=== PATIENT | male | born 2000 | race Caucasian/White ===

== ENCOUNTER 2020-09-03 08:31 | Emergency (ER) | payer OTHER, SELFPAY ==
[2020-09-03 08:28] VITALS: BP 141/90; PULSE 82; RESP 16; TEMP 36.6; O2SAT 99
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
[2020-09-03 09:14] LABS: Abs Immature Grans 0.01 10^3/uL (0.0-0.06); Absolute Basophil Count 0.02 10^3/uL (0.0-0.2); Absolute Eosinophil Count 0.05 10^3/uL (0.0-0.7); Absolute Lymphocyte Count 0.86 10^3/uL (1.2-3.4); Absolute Monocyte Count 0.37 10^3/uL (0.1-0.8); Absolute Neutrophil Count 2.86 10^3/uL (1.2-6.7); Basophils % 0.5; Eosinophils % 1.2; HCT 44.7 % (40.0-50.0); HGB 15.7 g/dL (13.5-17.5); Immature Grans % 0.2; Lymphocytes % 20.6; MCH 31.2 pg (27.0-33.0); MCHC 35.1 % (32.0-36.0); MCV 88.7 fL (80-95); MPV 9.7 fL (8.0-11.0); Monocytes % 8.9; Neutrophils % 68.6; Nucleated RBC 0 %; Platelet Count 213 10^3/uL (130-400); RBC 5.04 10^6/uL (4.36-5.78); RDW 12.1 % (11.8-14.1); RDW-SD 39.8 fL; WBC 4.17 10^3/uL (4.4-10.8)
[2020-09-03 09:29] LABS: ALT 26 U/L (16-63); AST 18 U/L (15-37); Albumin 4.6 g/dL (3.4-5.0); Alkaline Phosphatase 105 U/L (46-116); BUN 12 mg/dL (7-18); Bilirubin, Total 0.7 mg/dL (0.2-1.0); CREATININE 0.9 mg/dL (0.70-1.30); Calcium 9.4 mg/dL (8.5-10.1); Chloride 105 mmol/L (98-107); Glucose 88 mg/dL (74-106); Lipase 73 U/L (73-393); Potassium 4.4 mmol/L (3.5-5.1); Sodium 140 mmol/L (136-145); Total Protein 7.7 g/dL (6.4-8.2)
[2020-09-03] MEDS: Omnipaque 350 MG/ML 100 ML BTL IJ (09:31)
[2020-09-03] MEDS: Normal Saline - Diluent 50 ML VIAL IV (09:33)
[2020-09-03 11:17] LABS: Bilirubin Negative (Negative); Blood Negative (Negative); Clarity Clear (Clear); Glucose Negative (Negative); Ketones Negative (Negative); Leukocyte Esterase Negative (Negative); Nitrite Negative (Negative); Urobilinogen 0.2 EU/dL (Up TO 0.2); pH 7.5 (5-8)
[2020-09-03 11:46] VITALS: BP 139/80; PULSE 76; RESP 16; TEMP 37.2; O2SAT 99
== END 2020-09-03 11:44 | disposition home or self-care (01) ==
PROVIDERS: Emergency Provider Physician Assistant; PCP Physician Assistant Medical
DX: M54.2 Cervicalgia (principal); S66.912A Strain of unspecified muscle, fascia and tendon at wrist and hand level, left hand, initial encounter; S20.314A Abrasion of middle front wall of thorax, initial encounter; R10.10 Upper abdominal pain, unspecified; R10.13 Epigastric pain; V58.5XXA Driver of pick-up truck or van injured in noncollision transport accident in traffic accident, initial encounter
CPT/HCPCS: 36415; 74177; 80053; 83690; 86850; 86900; 86901; 99285; 70450; 71260; 72125; 72192; 73110; 81003; 85025; 99284; J3490

== ENCOUNTER 2022-01-16 11:44 | Emergency (ER) | payer OTHER, SELFPAY ==
[2022-01-16 11:55] VITALS: BP 111/78; PULSE 84; RESP 20; TEMP 36.7; O2SAT 97
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
[2022-01-16] MEDS: Ibuprofen 600 MG TAB PO (14:01)
== END 2022-01-16 14:13 | disposition home or self-care (01) ==
PROVIDERS: Emergency Provider Registered Nurse Emergency; PCP Physician Assistant Medical
DX: S80.12XA Contusion of left lower leg, initial encounter (principal); W22.8XXA Striking against or struck by other objects, initial encounter; Z87.891 Personal history of nicotine dependence
CPT/HCPCS: 29505; 99283; 73590; 99282

== ENCOUNTER 2022-03-13 21:16 | Emergency (ER) | payer OTHER, SELFPAY ==
[2022-03-13 21:27] VITALS: BP 131/66; PULSE 63; RESP 16; TEMP 36.6; O2SAT 99
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
[2022-03-13] MEDS: Cephalexin 500 MG CAP, 4 CAPS/BTL PO (22:00)
--- NOTE | 2022-03-14 01:25 | NUR.NOTE ---
foot soaked in soapy water, bacitracin and bandaid applied.Nursing Note:
== END 2022-03-13 22:17 | disposition home or self-care (01) ==
PROVIDERS: Emergency Provider Physician Assistant; PCP Physician Assistant
DX: S91.311A Laceration without foreign body, right foot, initial encounter (principal); L03.115 Cellulitis of right lower limb; W26.8XXA Contact with other sharp object(s), not elsewhere classified, initial encounter
CPT/HCPCS: 99283

== ENCOUNTER 2022-12-13 11:00 | Emergency (ER) | payer OTHER, SELFPAY ==
[2022-12-13 11:04] VITALS: BP 121/69; PULSE 75; RESP 16; TEMP 36.7; O2SAT 100
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
--- NOTE | 2022-12-13 11:15 | DI.RAD_ITS ---
Exam(s) XR FOOT RT COMPLETE EXAM: XR FOOT RT COMPLETE CLINICAL HISTORY: trauma. TECHNIQUE: 2D digital imaging was performed. Three views. COMPARISON: No exams were available for comparison FINDINGS: BONES: No acute fracture is present. No bony destructive lesion is seen. JOINTS: No dislocation present. SOFT TISSUE: Normal. IMPRESSION: Unremarkable radiographs of the right foot. DATA REPOSITORY: RADIATION DOSE DELIVERED:
[2022-12-13] MEDS: Acetaminophen 500 MG TAB 1000 MG PO (11:37)
[2022-12-13] MEDS: Ibuprofen 600 MG TAB PO (11:37)
--- NOTE | 2022-12-13 11:50 | DI.VRAD_ITS ---
PROCEDURE INFORMATION: Exam: XR Right Foot Exam date and time: 12/13/2022 11:40 AM Age: 22 years old Clinical indication: Injury or trauma; Fall; Blunt trauma; Foot; Right TECHNIQUE: Imaging protocol: Radiologic exam of the right foot. Views: 3 or more views. COMPARISON: No relevant prior studies available. FINDINGS: Bones/joints: There is no evidence of acute fracture.There is no evidence of malalignment or dislocation. Soft tissues: Normal. IMPRESSION: There is no evidence of acute fracture.There is no evidence of malalignment or dislocation. Dictated and Authenticated by: Shorty Khoury MD. Ordering:SHWETA Black MD
--- NOTE | 2022-12-13 13:18 | NUR.NOTE ---
Referral faxed to Podiatry [facility] for right foot injury to be seen within 10 days. Nursing Note:
== END 2022-12-13 12:10 | disposition home or self-care (01) ==
PROVIDERS: Emergency Provider Emergency Medicine Emergency Medical Services; PCP Physician Assistant
DX: S99.921A Unspecified injury of right foot, initial encounter (principal); X58.XXXA Exposure to other specified factors, initial encounter
CPT/HCPCS: 99283; 73630

== ENCOUNTER 2023-03-10 14:14 | Emergency (ER) | payer OTHER, SELFPAY ==
[2023-03-10 14:19] VITALS: BP 128/72; PULSE 73; RESP 16; TEMP 36.6; O2SAT 100
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
--- NOTE | 2023-03-10 14:30 | DI.RAD_ITS ---
Exam(s) XR KNEE LT 3V AP,LAT,MARA EXAM: XR KNEE LT 3V AP,LAT,MARA CLINICAL HISTORY: minor trauma/pain. TECHNIQUE: 2D digital imaging was performed. Three views. COMPARISON: No exams were available for comparison FINDINGS: BONES: No acute fracture is present. No bony destructive lesion is seen. JOINTS: The knee is normally aligned. No joint effusion is seen. SOFT TISSUE: Normal. IMPRESSION: Normal radiographs of the left knee. DATA REPOSITORY: RADIATION DOSE DELIVERED:
== END 2023-03-10 15:28 | disposition home or self-care (01) ==
PROVIDERS: Emergency Provider Emergency Medicine; PCP Physician Assistant
DX: M25.562 Pain in left knee (principal); F17.210 Nicotine dependence, cigarettes, uncomplicated
CPT/HCPCS: 73562; 99283; 99282

== ENCOUNTER 2024-01-18 12:10 | Emergency (ER) | payer OTHER, SELFPAY ==
[2024-01-18 12:17] VITALS: BP 122/77; PULSE 100; RESP 12; TEMP 36.6; O2SAT 98
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
--- NOTE | 2024-01-18 12:30 | DI.CT_ITS ---
Exam(s) CT RENAL COLIC WO EXAM: CT RENAL COLIC WO CLINICAL HISTORY: L flank pain. TECHNIQUE: Imaging Protocol: Axial computed tomography images with coronal and sagittal reformatted images were created and reviewed. CONTRAST MATERIAL: Noncontrast COMPARISON: CT CT PELVIC WO from 09/03/2020 FINDINGS: ABDOMEN: Lung Bases: Normal where visualized. Liver: Normal attenuation. No measurable mass. Gallbladder and biliary tract: No radiodense calculus or dilation. Pancreas: Normal density, no calcifications or inflammatory process. Spleen: Normal. Kidneys: Normal size, contour and axis. No radiodense stones or obstructive uropathy. No masses seen. Adrenal glands: No masses seen. Abdominal Aorta: Abdominal portion non-dilated. Soft tissues: Unremarkable. PELVIS: Bladder: Nearly empty. Not well evaluated. No evidence of stones.No visible mass. Bowel: No obstruction or bowel wall thickening. No abnormal distension. Appendix not identified. No secondary signs of appendicitis. Reproductive: Unremarkable. Peritoneal cavity: No ascites, collection or mesenteric inflammatory response. Bones: Unremarkable for age.. IMPRESSION: Unremarkable noncontrast CT scan of the abdomen and pelvis. RADIATION DOSE DELIVERED: 239.96mGy.cm Total DLP DATA REPOSITORY: All CT scans at this facility are submitted to the National Radiology Data Registry (NRDR) Dose Index Registry (DIR) with the [employer] (ACR). RADIATION OPTIMIZATION: All CT scans at this facility use at least one of these dose optimization te chniques: automated exposure control; mA and/or kV adjustment per patient size (includes targeted exa ms where dose is matched to clinical indication); or iterative reconstruction.
[2024-01-18 13:01] LABS: Bilirubin Negative (Negative); Blood Negative (Negative); Clarity Clear (Clear); Glucose Negative (Negative); Ketones Trace mg/dL (Negative); Leukocyte Esterase Negative (Negative); Nitrite Negative (Negative); Specific Gravity 1.025 (1.005-1.025); Urobilinogen 0.2 mg/dL (Up to 0.2); pH 5.5 (5-8)
[2024-01-18 13:17] LABS: Abs Immature Grans 0.02 10^3/uL (0.0-0.06); Absolute Basophil Count 0.03 10^3/uL (0.0-0.2); Absolute Eosinophil Count 0.05 10^3/uL (0.0-0.7); Absolute Lymphocyte Count 1.96 10^3/uL (1.2-3.4); Absolute Monocyte Count 0.68 10^3/uL (0.1-0.8); Absolute Neutrophil Count 6.67 10^3/uL (1.2-6.7); Basophils % 0.3 %; Eosinophils % 0.5 %; HCT 50.9 % (40.0-50.0); Immature Grans % 0.2 %; Lactate 1.1 mmol/L (0.6-1.4); Lymphocytes % 20.8 %; MCH 31.3 pg (27.0-33.0); MCHC 35.4 % (32.0-36.0); MCV 89 fL (80-95); MPV 9.1 fL (8.0-11.0); Monocytes % 7.2 %; Platelet Count 264 10^3/uL (130-400); RBC 5.75 10^6/uL (4.36-5.78); RDW 12.3 % (11.8-14.1); RDW-SD 39.8 fL; WBC 9.41 10^3/uL (4.4-10.8)
[2024-01-18 13:38] LABS: ALT 21 U/L (16-63); AST 20 U/L (15-37); Albumin 5.3 g/dL (3.4-5.0); Alkaline Phosphatase 110 U/L (46-116); Anion Gap 12.6 mmol/L (3-11); BUN 7 mg/dL (7-18); Bilirubin, Total 0.85 mg/dL (0.2-1.0); CO2 25.4 mmol/L (21.0-32.0); CREATININE 0.9 mg/dL (0.70-1.30); Chloride 100 mmol/L (98-107); Estimated GFR 123.07 (mL/min/1.73m2); Glucose 83 mg/dL (74-106); Lipase 25 U/L (16-77); Sodium 138 mmol/L (136-145); Total Protein 9.7 g/dL (6.4-8.2)
[2024-01-18] MEDS: ACETAMINOPHEN 1,000 MG/100 ML BTL 400 MG IVPB (14:14)
[2024-01-18] MEDS: Ondansetron 4 MG/2 ML VIAL IVP (14:15)
[2024-01-18] MEDS: Ketorolac 15 MG/ML VIAL IVP (14:15)
[2024-01-18 14:21] LABS: Calcium 9.4 mg/dL (8.5-10.1)
[2024-01-18 14:54] VITALS: BP 128/78; PULSE 70; RESP 18; O2SAT 96
[2024-01-18 14:54] LABS: Procalcitonin < 0.1 ng/mL
[2024-01-18 15:22] VITALS: BP 128/78; PULSE 70; RESP 18; TEMP 36.6; O2SAT 96
[2024-01-18 15:23] VITALS: BP 128/78; PULSE 70; RESP 18; TEMP 36.6; O2SAT 96
== END 2024-01-18 15:24 | disposition home or self-care (01) ==
PROVIDERS: Emergency Provider Physician Assistant; PCP Physician Assistant
DX: S39.011A Strain of muscle, fascia and tendon of abdomen, initial encounter (principal); R11.2 Nausea with vomiting, unspecified; F17.210 Nicotine dependence, cigarettes, uncomplicated; F17.290 Nicotine dependence, other tobacco product, uncomplicated; X58.XXXA Exposure to other specified factors, initial encounter
CPT/HCPCS: 80053; 83690; 84145; 96374; 96375; 99284; 71046; 74176; 81003; 83605; 85025; J0131; J1885; J2405

== ENCOUNTER 2024-12-08 17:45 | Emergency (ER) | payer BC, SELFPAY ==
[2024-12-08 17:48] VITALS: BP 139/79; PULSE 60; RESP 18; TEMP 36.6; O2SAT 98
--- NOTE | 2024-12-08 18:00 | DI.RAD_ITS ---
Exam(s) XR HAND RT COMPLETE EXAM: XR HAND RT COMPLETE CLINICAL HISTORY: tenderness to right thumb. TECHNIQUE: 2D digital imaging was performed. Three views. COMPARISON: No exams were available for comparison FINDINGS: BONES: No acute fracture is present. No bony destructive lesion is seen. JOINTS: No dislocation present. SOFT TISSUE: Normal. IMPRESSION: Unremarkable radiographs of the right hand. DATA REPOSITORY: RADIATION DOSE DELIVERED:
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
[2024-12-08 19:06] VITALS: BP 125/84; PULSE 61; RESP 19; TEMP 36.6; O2SAT 100
== END 2024-12-08 19:09 | disposition home or self-care (01) ==
LOC: ER 18:45
PROVIDERS: Emergency Provider Physician Assistant
DX: S66.411A Strain of intrinsic muscle, fascia and tendon of right thumb at wrist and hand level, initial encounter (principal); F17.210 Nicotine dependence, cigarettes, uncomplicated; F17.290 Nicotine dependence, other tobacco product, uncomplicated; X58.XXXA Exposure to other specified factors, initial encounter
CPT/HCPCS: 99283; 73130